=== PATIENT | male | born 1955 | race Caucasian/White ===

== ENCOUNTER → 2018-01-12 | Outpatient (CLI) | payer BC ==
--- NOTE | 2018-01-12 10:54 | RAD ---
CT of the chest without contrast lung cancer screening protocol. 01/12/2018 INDICATION: 62-year-old male, lifetime smoker. COMPARISON STUDY: None available TECHNIQUE: Multidetector CT imaging of the chest was performed without contrast according to a low-dose lung cancer screening protocol. FINDINGS: The heart is normal in size. No pericardial effusion is identified. Multifocal coronary calcification noted. Scattered small mediastinal lymph nodes are noted individually nodes do not meet size criteria for pathologic enlargement. Nodes are mildly prominent in number. There is a right, paraesophageal mass measuring approximately 3.1 x 3.3 x 3.4 cm. The mass cannot readily be distinguished from the esophagus,, but is eccentric to the esophagus, without evidence of obstruction. The attenuation characteristics are mildly higher than would be seen for and a simple cyst. 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 An esophageal mass or adenopathy is felt to be less likely but not excluded on the basis of this noncontrast enhanced exam. Limited visualization of the upper abdomen is grossly unremarkable. There is no pneumothorax, or pleural effusion. Mild apical scarring seen bilaterally. Small apical blebs are seen bilaterally. There are linear opacities involving the bilateral lower lobes. Some these have somewhat nodular areas of thickening. The appearance favors scarring or atelectasis. Similar findings are seen in the right lower lobe and middle lobe. There is a there is a 9 mm noncalcified nodule in the apical right lower lobe (thin axial image 174). No other pulmonary nodules are identified. No pleural effusion, focal infiltrate, or pneumothorax is seen. No acute osseous changes are identified. Degenerative changes of thoracic spine with anterior bridging osteophytes noted. IMPRESSION: 1. 9 mm noncalcified nodule right upper lobe. Lungs -RADS category 4A. Three-month follow-up CT versus PET/CT recommended for further characterization. 2. Multifocal linear opacities somewhat somewhat nodular areas of thickening seen. Findings present in the lower lobes and right middle lobe. Attention on follow-up studies recommended. 3. 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 Recommend repeat imaging of the chest with contrast for further characterization. Additionally/alternatively if evaluation of the upper lobe nodule via PET CT is performed, this could provide additional evaluation of this. CT DOSING PQRS STATEMENT: One or more of the following individualized dose reduction techniques were utilized for this examination: 1. Automated exposure control 2. Adjustment of the mA and/or kV according to patient size 3. Use of iterative reconstruction technique Electronically signed by: Alfredito Iraheta MD (01/12/2018 10:50 AM) [id number]
== END | disposition home or self-care (01) ==
LOC: CT 07:45
PROVIDERS: ATTEND Family Medicine
DX: Z12.2 Encounter for screening for malignant neoplasm of respiratory organs (principal); F17.200 Nicotine dependence, unspecified, uncomplicated; R91.8 Other nonspecific abnormal finding of lung field
CPT/HCPCS: G0297

== ENCOUNTER → 2018-11-12 | Outpatient (CLI) | payer BC | END | disposition home or self-care (01) | LOC: SURG 08:04 | PROVIDERS: ATTEND Anesthesiology Pain Medicine | DX: M54.12 Radiculopathy, cervical region (principal); E78.00 Pure hypercholesterolemia, unspecified; K21.9 Gastro-esophageal reflux disease without esophagitis; Z79.899 Other long term (current) drug therapy; Z79.01 Long term (current) use of anticoagulants | CPT/HCPCS: 99213 ==